=== PATIENT | female | born 1965 | race Caucasian/White ===

== ENCOUNTER 2017-08-07 17:25 | Emergency (ER) | payer OTHER ==
[2017-08-07 17:25] VITALS: BMI 29.2
[2017-08-07 17:29] VITALS: BP 145/80; PULSE 67; RESP 17; TEMP 98.4; O2SAT 100
--- NOTE | 2017-08-07 17:35 | C.PDOC ---
History Of Present Illness 52 year old female presents to the ED complaining of suprapubic pain radiating to her back that began 2 days ago. Patient reports urinary frequency, dysuria and denies any fever, hematuria or vomiting. Time Seen by Provider: 08/07/17 17:31 Chief Complaint (Nursing): Female Genitourinary History Per: Patient History/Exam Limitations: no limitations Onset/Duration Of Symptoms: Days Current Symptoms Are (Timing): Still Present Associated Symptoms: Back Pain, Urinary Symptoms (Urinary frequency, dysuria ). denies: Fever, Vomiting Past Medical History Reviewed: Historical Data, Nursing Documentation, Vital Signs Vital Signs: Last Vital Signs Temp 98.4 F 08/07/17 17:28 Pulse 67 08/07/17 17:28 Resp 17 08/07/17 17:28 BP 145/80 08/07/17 17:28 Pulse Ox 100 08/07/17 18:19 - Medical History PMH: No Chronic Diseases Surgical History: No Surg Hx Family History: States: No Known Family Hx - Social History Hx Tobacco Use: No Hx Alcohol Use: No Hx Substance Use: No - Immunization History Hx Tetanus Toxoid Vaccination: No Hx Influenza Vaccination: No Hx Pneumococcal Vaccination: No Review Of Systems Constitutional: Negative for: Fever, Chills Cardiovascular: Negative for: Palpitations Respiratory: Negative for: Shortness of Breath Gastrointestinal: Negative for: Vomiting, Abdominal Pain Genitourinary: Positive for: Dysuria, Frequency. Negative for: Hematuria, Vaginal Bleeding, Pelvic Pain Neurological: Negative for: Headache Physical Exam - Physical Exam Appears: Non-toxic, No Acute Distress Skin: Normal Color, Warm, Dry Head: Atraumatic, Normacephalic Eye(s): bilateral: Normal Inspection Neck: Supple Chest: Symmetrical Cardiovascular: Rhythm Regular, No Murmur Respiratory: Normal Breath Sounds, No Accessory Muscle Use, No Rales, No Rhonchi , No Wheezing Gastrointestinal/Abdominal: Soft, Tenderness (suprapubic), No Distention, No Guarding Back: Normal Inspection, No CVA Tenderness Extremity: Bilateral: Atraumatic, Normal ROM Neurological/Psych: Oriented x3, Normal Speech Gait: Steady ED Course And Treatment O2 Sat by Pulse Oximetry: 100 (RA) Pulse Ox Interpretation: Normal Medical Decision Making Medical Decision Making: Impression: dysuria Plan: UA Progress: Urine showed LE, WBCs. Patient further treated with Bactrim 1tab PO and Pyridium 200mg PO On reassessment, patient is ready and stable for discharge. Patient was instructed to take antibiotics and follow up with physician/clinic in 1-2 days for further evaluation. Disposition Counseled Patient/Family Regarding: Diagnosis, Need For Followup, Rx Given - Disposition Referrals: [facility] [Outside] [facility] [Outside] Disposition: HOME/ ROUTINE Disposition Time: 18:10 Condition: GOOD Additional Instructions: Take antibiotic twice daily and be sure to finish taking all of antibiotic. Drink plenty of fluids. [place] antibiticos dos veces al da y asegrese de terminar de lorrie todos los antibiticos. Beber mucho lquido. Prescriptions: Sulfamethoxazole/Trimethoprim [Bactrim DS 800 mg-160 mg] 1 tab PO BID #10 tab Instructions: Acute Cystitis (DC) Print Language: ROMANSH - POA Present On Arrival: None - Clinical Impression Clinical Impression: Cystitis - PA / [employer] / Resident Statement MD/DO has reviewed & agrees with the documentation as recorded. - Scribe Statement The provider has reviewed the documentation as recorded by the Scribe (Nettie Gordon) All medical record entries made by the Scribe were at my direction and personally dictated by me. I have reviewed the chart and agree that the record accurately reflects my personal performance of the history, physical exam, medical decision making, and the department course for this patient. I have also personally directed, reviewed, and agree with the discharge instructions and disposition.
[2017-08-07 17:49] LABS: URINE BACTERIA OCC (<OCC); URINE BILIRUBIN NEGATIVE (NEGATIVE); URINE BLOOD 3+ (NEGATIVE); URINE CLARITY Clear (Clear); URINE COLOR Straw (YELLOW); URINE GLUCOSE (UA) NORMAL (Normal); URINE LEUKOCYTE ESTERASE 3+ Leu/uL (Negative); URINE PROTEIN NEGATIVE (NEGATIVE); URINE UROBILINOGEN NORMAL mg/dL (0.2-1.0)
[2017-08-07] MEDS ORDERED: Tmp-Smz 800 mg-160 mg DS Tab PO STA (17:53)
[2017-08-07] MEDS ORDERED: Tmp-Smz 800 mg-160 mg DS Tab ONE (18:10)
== END 2017-08-07 18:10 | disposition home or self-care (01) ==
LOC: C.ER 17:25
DX: N30.90 Cystitis, unspecified without hematuria (principal)